=== PATIENT | female | born 1950 | race Caucasian/White ===

== ENCOUNTER 2017-07-17 18:55 | Inpatient (IN) | payer OTHER ==
[~2017-07-17] VITALS: Ht 165.1 cm; Wt 104.7 kg
[~2017-07-17 18:55] MED LIST: ACTONEL35 MG PO; AGGRENOX1 CAPSULE PO; AMLODIPINE BESY10 MG PO; ASCORBIC ACID500 M3 PO; ASPIR-LOW81 MG PO; ATENOLOL25 MG PO; BACTRIM,SEPT1 TABLET PO; BASAGLAR K100 UNIT/1 SC; BUSPAR10 MG PO; CATAPRES0.1 MG PO; COZAAR50 MG PO; CRESTOR20 MG PO; CYANOCOBALAM1000 MCG PO; EDECRIN25 MG PO; EXFORGE 5/321 TABLET PO; FEOSOL325 MG PO; HUMALOG100 UNIT/1 SC; HUMALOG100 UNITS/ SC; Hydrodiuril,Oretic,E PO; LANTUS 3 M100 UNITS/ SC; LANTUS 3 M100 UNITS1 SC; LEVAQUIN500 MG PO; LEVEMIR FL100 UNITS/ SC; LEXAPRO20 MG PO; LOSARTAN POTAS100 MG PO; LYRICA50 MG PO; MIRALAX17 GM PO; MYRBETRIQ50 MG PO; NASONEX17 GM BOTH NARES; NEURONTIN300 MG PO; PREVACID30 MG PO; Prevacid PO; Reglan PO; SENNA-TIME S T1 EACH PO; ULTRAM50 MG PO; VESICARE5 MG PO; VITAMIN D31000 UNIT PO; Vasotec PO; Vicodin,Lortab 5/500 PO; Vitamin B-12 PO; ZYRTEC10 M3 PO; ZyrTEC PO
[2017-07-17 19:26] LABS: POINT-OF-CARE METER ID UU13113778
[2017-07-17 20:17] LABS: EOSINOPHIL (%) 0.8 % (0-5); EOSINOPHIL COUNT 0.1 K/uL (0-0.3); HEMATOCRIT 31.8 % (36.0-46.0); IMMATURE GRANULOCYTE (%) 0.2 % (0.0-0.7); INSTRUMENT ABS NEUTROPHIL CT 6.1 K/uL; LYMPHOCYTE COUNT 1.4 K/uL (1.0-2.8); MCH 31.4 PG (29.0-34.0); MCV 95.2 FL (83-99); MEAN PLAT.VOLUME 11.2 uM^3 (9.5-12.4); MONOCYTE (%) 12.5 % (3-12); MONOCYTE COUNT 1.1 K/uL (0-0.8); NEUTROPHIL (%) 69.9 % (45-76); NEUTROPHIL COUNT 6.1 K/uL (1.8-6.4); PLATELET COUNT 168 K/uL (156-360); RBC DIS.WIDTH-CV 12.6 % (11.8-14.6); RBC DIS.WIDTH-SD 43.9 % (39-53); RED BLOOD COUNT 3.34 M/uL (3.80-5.20); WHITE BLOOD COUNT 8.7 K/uL (4.1-10.2)
[2017-07-17 20:18] LABS: CARBON DIOXIDE (BICARBONATE) 29.7 MEQ/L (20-31)
[2017-07-17 20:26] LABS: CHLORIDE 108 mEq/L (99-109); POTASSIUM 4.2 mEq/L (3.7-5.4); SODIUM 140 mEq/L (136-147)
[2017-07-17 20:28] LABS: GLUCOSE 149 mg/dL (70-99)
[2017-07-17 20:29] LABS: ANION GAP 10 MEQ/L (2-14)
[2017-07-17 20:30] LABS: TOTAL BILIRUBIN 0.4 mg/dL (0.0-1.0)
[2017-07-17 20:31] LABS: ALKALINE PHOSPHATASE 88 IU/L (3-129)
[2017-07-17 20:32] LABS: GFR ESTIMATE (CALCULATED) 37 mL/min/
[2017-07-17 20:33] LABS: UREA NITROGEN (BUN) 32 mg/dL (9-23)
[2017-07-17 21:05] LABS: ADD MIUA? YES; BILIRUBIN NEGATIVE; BLOOD SMALL; COLOR YELLOW ((YELLOW)); GLUCOSE (STRIP) NEGATIVE; KETONES NEGATIVE; LEUKOCYTES LARGE; NITRITE NEGATIVE; PROTEIN (STRIP) 30; SPECIFIC GRAVITY 1.014 (1.000-1.030); UROBILINOGEN 0.2 MG/DL (0.2-1.0)
[2017-07-17 21:43] LABS: BACTERIA 4+ /HPF; EPITHELIAL CELLS 1+ /HPF; MUCUS NONE SEEN /LPF
[2017-07-17 21:44] LABS: AMORPHOUS URATES CRYSTALS 2+; CASTS NONE SEEN /LPF; CRYSTALS PRESENT
[2017-07-17] MEDS ORDERED: HUMALOG100 UNIT/1 SC (22:52)
[2017-07-17] MEDS ORDERED: FIBERCON625 MG PO (22:54)
[2017-07-17] MEDS ORDERED: PERCOCET 5/31 TABLET PO (22:54)
[2017-07-17] MEDS ORDERED: LYRICA50 MG PO (22:54)
[2017-07-17] MEDS ORDERED: METOPROLOL SUCC50 MG PO (22:54)
[2017-07-18] VITALS (7 sets, daily range): BP systolic 129–188; BP diastolic 60–82
[2017-07-18] LABS: POINT-OF-CARE METER ID UU13113747
[2017-07-18 06:32] LABS: HEMATOCRIT 28.1 % (36.0-46.0); MCV 96.9 FL (83-99); MEAN PLAT.VOLUME 11.3 uM^3 (9.5-12.4); PLATELET COUNT 159 K/uL (156-360); RBC DIS.WIDTH-CV 12.7 % (11.8-14.6); RBC DIS.WIDTH-SD 45.2 % (39-53); WHITE BLOOD COUNT 7.6 K/uL (4.1-10.2)
[2017-07-18 06:59] LABS: ALKALINE PHOSPHATASE 73 IU/L (3-129); ANION GAP 10 MEQ/L (2-14); CHLORIDE 108 MEQ/L (99-109); GFR ESTIMATE (CALCULATED) 37 mL/min/; GLUCOSE 216 mg/dL (70-99); HDL CHOLESTEROL 46 MG/DL (Desirable>=50); LDL CHOLESTEROL 41 mg/dL (Desirable<100); NON-HDL CHOLESTEROL 60 mg/dL (Desirable<160); SAMPLE HEMOLYSIS CHECK 0; SAMPLE ICTERIC CHECK 0; SAMPLE LIPEMIA CHECK 0; SODIUM 143 MEQ/L (136-147); TOTAL BILIRUBIN 0.4 MG/DL (0.0-1.0); TOTAL CHOLESTEROL 106 mg/dL (Desirable<200); TRIGLYCERIDES 97 MG/DL (Normal: <150); UREA NITROGEN (BUN) 27 mg/dL (9-23)
[2017-07-18 12:28] LABS: POINT-OF-CARE METER ID UU14188577
[2017-07-18 17:04] LABS: POINT-OF-CARE METER ID UU14188577
[2017-07-18 22:04] LABS: POINT-OF-CARE METER ID UU14117124
[2017-07-19 02:59] VITALS: BP 147/70
[2017-07-19 06:56] LABS: EOSINOPHIL (%) 3.9 % (0-5); EOSINOPHIL COUNT 0.3 K/uL (0-0.3); HEMATOCRIT 28.9 % (36.0-46.0); IMMATURE GRANULOCYTE (%) 0.3 % (0.0-0.7); INSTRUMENT ABS NEUTROPHIL CT 4.2 K/uL; LYMPHOCYTE COUNT 1.2 K/uL (1.0-2.8); MCH 31.2 PG (29.0-34.0); MCHC 31.8 G/DL (30.0-36.0); MEAN PLAT.VOLUME 11.7 uM^3 (9.5-12.4); MONOCYTE (%) 14.4 % (3-12); NEUTROPHIL (%) 63.5 % (45-76); NEUTROPHIL COUNT 4.2 K/uL (1.8-6.4); PLATELET COUNT 170 K/uL (156-360); RBC DIS.WIDTH-CV 12.6 % (11.8-14.6); RBC DIS.WIDTH-SD 45.1 % (39-53); RED BLOOD COUNT 2.95 M/uL (3.80-5.20); WHITE BLOOD COUNT 6.7 K/uL (4.1-10.2)
[2017-07-19 07:22] LABS: ANION GAP 8 MEQ/L (2-14); CHLORIDE 108 MEQ/L (99-109); GFR ESTIMATE (CALCULATED) 30 mL/min/; GLUCOSE 244 mg/dL (70-99); POTASSIUM 4.7 MEQ/L (3.7-5.4); SAMPLE HEMOLYSIS CHECK 0; SAMPLE ICTERIC CHECK 0; SAMPLE LIPEMIA CHECK 0; SODIUM 142 MEQ/L (136-147); UREA NITROGEN (BUN) 31 mg/dL (9-23)
[2017-07-19 08:51] VITALS: BP 124/61
[2017-07-19 12:11] VITALS: BP 181/81
[2017-07-19 15:46] VITALS: BP 187/82
[2017-07-19 19:34] VITALS: BP 185/77
[2017-07-19 21:19] LABS: POINT-OF-CARE METER ID UU14117124
[2017-07-19 23:28] VITALS: BP 188/79
[2017-07-20 03:51] VITALS: BP 185/78
[2017-07-20 06:54] LABS: EOSINOPHIL (%) 2.2 % (0-5); EOSINOPHIL COUNT 0.2 K/uL (0-0.3); HEMATOCRIT 29.7 % (36.0-46.0); IMMATURE GRANULOCYTE (%) 0.2 % (0.0-0.7); LYMPHOCYTE COUNT 1.1 K/uL (1.0-2.8); MCH 30.9 PG (29.0-34.0); MCV 96.7 FL (83-99); MEAN PLAT.VOLUME 11.5 uM^3 (9.5-12.4); MONOCYTE (%) 9.2 % (3-12); MONOCYTE COUNT 0.7 K/uL (0-0.8); NEUTROPHIL (%) 74.1 % (45-76); PLATELET COUNT 183 K/uL (156-360); RBC DIS.WIDTH-CV 12.5 % (11.8-14.6); RBC DIS.WIDTH-SD 44.3 % (39-53); RED BLOOD COUNT 3.07 M/uL (3.80-5.20); WHITE BLOOD COUNT 8.1 K/uL (4.1-10.2)
[2017-07-20 07:33] VITALS: BP 156/74
[2017-07-20 07:35] LABS: ANION GAP 11 MEQ/L (2-14); CHLORIDE 105 MEQ/L (99-109); GFR ESTIMATE (CALCULATED) 53 mL/min/; POTASSIUM 4.5 MEQ/L (3.7-5.4); SODIUM 139 MEQ/L (136-147); UREA NITROGEN (BUN) 24 mg/dL (9-23)
[2017-07-20 07:36] LABS: GLUCOSE 385 mg/dL (70-99)
[2017-07-20 12:03] VITALS: BP 158/70
[2017-07-20 20:27] VITALS: BP 132/70
[2017-07-21] VITALS (8 sets, daily range): BP systolic 141–186; BP diastolic 70–111
[2017-07-21 06:36] LABS: POINT-OF-CARE METER ID UU14208753
[2017-07-21 11:28] LABS: POINT-OF-CARE METER ID UU14117124
[2017-07-21 16:49] LABS: POINT-OF-CARE METER ID UU14117124
[2017-07-21 22:13] LABS: POINT-OF-CARE METER ID UU14117124
[2017-07-22 03:56] VITALS: BP 162/72
[2017-07-22 06:58] LABS: POINT-OF-CARE METER ID UU14188577
[2017-07-22 07:33] VITALS: BP 184/74
[2017-07-22 11:54] VITALS: BP 164/73
[2017-07-22 12:14] LABS: POINT-OF-CARE METER ID UU14188577
[2017-07-22 15:28] VITALS: BP 184/77
[2017-07-22 16:42] LABS: POINT-OF-CARE METER ID UU14117124
[2017-07-22 19:16] VITALS: BP 134/86
[2017-07-22 21:03] LABS: POINT-OF-CARE METER ID UU14188577
[2017-07-22 23:41] VITALS: BP 144/80
[2017-07-23 02:24] LABS: POINT-OF-CARE METER ID UU14208753
[2017-07-23 04:39] VITALS: BP 183/81
[2017-07-23 06:42] LABS: POINT-OF-CARE METER ID UU14188577
[2017-07-23 07:25] VITALS: BP 122/67
[2017-07-23 08:35] VITALS: BP 122/67
[2017-07-23] MEDS ORDERED: GLUCAGEN1 MG/1 ML IM/SC (09:04)
[2017-07-23] MEDS ORDERED: ENDOCET 5-3251 EACH PO (09:04)
[2017-07-23] MEDS ORDERED: CLONIDINE HCL0.1 MG PO (09:04)
[2017-07-23] MEDS ORDERED: AMLODIPINE BESYL5 MG PO (09:04)
[2017-07-23] MEDS ORDERED: OXYCODONE-APAP1 EACH PO (09:04)
[2017-07-23 11:19] VITALS: BP 196/76
[2017-07-23 11:37] LABS: POINT-OF-CARE METER ID UU14188577
[2017-07-23 12:47] VITALS: BP 160/72
== END 2017-07-23 13:18 | DRG 948 ==
LOC: EME 18:55 → MIC 18:55 → 3EAST 22:00 → EDOF 22:00 → ENRESERV 22:21 → 3EAST 07-18 00:03
PROVIDERS: Emergency Medicine; Internal Medicine
DX: R41.0 Disorientation, unspecified (principal); N39.0 Urinary tract infection, site not specified; E11.65 Type 2 diabetes mellitus with hyperglycemia; I12.9 Hypertensive chronic kidney disease with stage 1 through stage 4 chronic kidney disease, or unspecified chronic kidney disease; D63.8 Anemia in other chronic diseases classified elsewhere; E11.22 Type 2 diabetes mellitus with diabetic chronic kidney disease; E11.42 Type 2 diabetes mellitus with diabetic polyneuropathy; Z86.73 Personal history of transient ischemic attack (TIA), and cerebral infarction without residual deficits; M81.0 Age-related osteoporosis without current pathological fracture; K21.9 Gastro-esophageal reflux disease without esophagitis; E78.5 Hyperlipidemia, unspecified; F32.9 Major depressive disorder, single episode, unspecified; F41.9 Anxiety disorder, unspecified; N18.3 Chronic kidney disease, stage 3 (moderate); R13.10 Dysphagia, unspecified; S42.201D Unspecified fracture of upper end of right humerus, subsequent encounter for fracture with routine healing; J44.9 Chronic obstructive pulmonary disease, unspecified; Z88.2 Allergy status to sulfonamides; Z87.891 Personal history of nicotine dependence; Z87.440 Personal history of urinary (tract) infections; Z83.3 Family history of diabetes mellitus; Z79.4 Long term (current) use of insulin; Y92.9 Unspecified place or not applicable; Z68.38 Body mass index [BMI] 38.0-38.9, adult
CPT/HCPCS: 36415; 70450; 70551; 71020; 80048; 80053; 80061; 81003; 82010; 82803; 82948; 83036; 85025; 85027; 87077; 87086; 87186; 90686; 92610 GN; 93005; 94799; 97530 GO; 97530 GP; 99281; 99285; J0360; J0696; J1170; J1644; J1815; J7030; J7050

== ENCOUNTER 2018-04-15 10:28 | Day surgery (SDC) | payer OTHER ==
[~2018-04-15] VITALS: Ht 165.1 cm; Wt 103.5 kg
[~2018-04-15 10:28] MED LIST changes: +AMLODIPINE BESYL5 MG PO; +ASPIR 8181 M1 PO; +CLONIDINE HCL0.1 MG PO; +DIOVAN160 MG PO; +ENDOCET 5-3251 EACH PO; +FIBERCON625 MG PO; +GLUCAGEN1 MG/1 ML IM/SC; +LIPITOR20 MG PO; +METOPROLOL SUCC50 MG PO; +NORVASC5 MG PO; +OXYCODONE-APAP1 EACH PO; +PERCOCET 5/31 TABLET PO; +ROCEPHIN 2 GM VI2 GM IM; +SYNTHROID50 MCG PO; +TOPROL XL50 MG PO; +ZYRTEC10 M2 PO
[2018-04-15 11:28] VITALS: BP 182/79
[2018-04-15 15:40] VITALS: BP 179/84
[2018-04-15 16:30] VITALS: BP 160/80
== END 2018-04-15 16:40 | disposition home or self-care (01) ==
LOC: SDC 10:28
PROVIDERS: Orthopaedic Surgery Sports Medicine
PROC: 0PSL04Z Reposition Left Ulna with Internal Fixation Device, Open Approach (ICD-10-PCS; principal; 2018-04-15)
DX: S52.022A Displaced fracture of olecranon process without intraarticular extension of left ulna, initial encounter for closed fracture (principal); I10 Essential (primary) hypertension; J44.9 Chronic obstructive pulmonary disease, unspecified; D64.9 Anemia, unspecified; E78.5 Hyperlipidemia, unspecified; E11.40 Type 2 diabetes mellitus with diabetic neuropathy, unspecified; N28.9 Disorder of kidney and ureter, unspecified; Z96.619 Presence of unspecified artificial shoulder joint; E66.9 Obesity, unspecified; Z82.49 Family history of ischemic heart disease and other diseases of the circulatory system; Z83.3 Family history of diabetes mellitus; Z79.82 Long term (current) use of aspirin; Z79.4 Long term (current) use of insulin; Z80.6 Family history of leukemia; Z82.5 Family history of asthma and other chronic lower respiratory diseases; Z88.2 Allergy status to sulfonamides; Z88.8 Allergy status to other drugs, medicaments and biological substances; W01.0XXA Fall on same level from slipping, tripping and stumbling without subsequent striking against object, initial encounter; Y92.009 Unspecified place in unspecified non-institutional (private) residence as the place of occurrence of the external cause
CPT/HCPCS: 73070; 76000; 82948; 87641; 93005; C1713; J0330; J0690; J1100; J1815; J2250; J2405; J2795; J3010; Q0175; S0020

== ENCOUNTER 2018-04-18 18:10 | Inpatient (IN) | payer OTHER ==
[~2018-04-18] VITALS: Ht 167.6 cm; Wt 108.3 kg
[2018-04-18 18:45] LABS: HEMATOCRIT 29.8 % (36.0-46.0); HEMOGLOBIN 10.1 G/DL (11.9-15.5); MCHC 33.9 G/DL (30.0-36.0); MCV 91.4 FL (83-99); PLATELET COUNT 325 K/uL (156-360); RBC DIS.WIDTH-CV 12.3 % (11.8-14.6); RBC DIS.WIDTH-SD 41.4 % (39-53); RED BLOOD COUNT 3.26 M/uL (3.80-5.20); WHITE BLOOD COUNT 8.1 K/uL (4.1-10.2)
[2018-04-18 19:15] LABS: CHLORIDE 104 mEq/L (99-109); SODIUM 138 mEq/L (136-147)
[2018-04-18 19:17] LABS: GLUCOSE 130 mg/dL (70-99)
[2018-04-18 19:20] LABS: GFR ESTIMATE (CALCULATED) 24 mL/min/
[2018-04-18 19:28] LABS: CREATININE 2.2 mg/dL (0.6-1.3); UREA NITROGEN (BUN) 55 mg/dL (9-23)
[2018-04-18 21:10] LABS: ALBUMIN 4.6 g/dL (3.2-4.8)
[2018-04-18 21:13] LABS: TOTAL PROTEIN 7.2 g/dL (6.4-8.3)
[2018-04-18 21:15] LABS: TOTAL BILIRUBIN 0.7 mg/dL (0.0-1.0)
[2018-04-18 21:16] LABS: ALKALINE PHOSPHATASE 63 IU/L (3-129)
[2018-04-18 21:18] LABS: AST (GOT) 12 IU/L (2-34); DIRECT BILIRUBIN 0.3 mg/dL (0.0-0.3)
[2018-04-18 21:19] LABS: ALT (GPT) 15 IU/L (3-49)
[2018-04-18 21:25] LABS: TROP-I INTERPRETATION NEGATIVE; TROPONIN-I < 0.01 ng/mL (0.0-0.30)
[2018-04-18 22:35] LABS: APPEARANCE CLEAR ((CLEAR)); BILIRUBIN NEGATIVE; BLOOD SMALL; COLOR YELLOW ((YELLOW)); GLUCOSE (STRIP) 150; KETONES NEGATIVE; LEUKOCYTES NEGATIVE; NITRITE NEGATIVE; PROTEIN (STRIP) NEGATIVE; UROBILINOGEN 0.2 MG/DL (0.2-1.0)
[2018-04-18] MEDS ORDERED: ENDOCET 5-3251 EACH PO (22:37)
[2018-04-18] MEDS ORDERED: CEPHALEXIN500 MG PO (22:38)
[2018-04-18] MEDS ORDERED: LEVOTHYROXINE75 MCG PO (22:38)
[2018-04-18] MEDS ORDERED: ATORVASTATIN CA20 MG PO (22:39)
[2018-04-18 22:41] LABS: BACTERIA NONE SEEN /HPF; EPITHELIAL CELLS RARE /HPF; MUCUS TRACE /LPF; RED BLOOD CELLS 0-5 /HPF (0-5); UCUL ADDED? NO; WHITE BLOOD CELLS 0-5 /HPF (0-5)
[2018-04-18 23:00] LABS: MAGNESIUM 2.5 mg/dL (1.3-2.7)
[2018-04-19] VITALS (7 sets, daily range): BP systolic 130–193; BP diastolic 70–90
[2018-04-19 06:18] LABS: HEMATOCRIT 31.2 % (36.0-46.0); HEMOGLOBIN 10.2 G/DL (11.9-15.5); MCH 30.2 PG (29.0-34.0); MCHC 32.7 G/DL (30.0-36.0); MCV 92.3 FL (83-99); PLATELET COUNT 341 K/uL (156-360); RBC DIS.WIDTH-CV 12.3 % (11.8-14.6); RBC DIS.WIDTH-SD 41.8 % (39-53); RED BLOOD COUNT 3.38 M/uL (3.80-5.20); WHITE BLOOD COUNT 5.8 K/uL (4.1-10.2)
[2018-04-19 06:44] LABS: ALBUMIN 3.2 G/DL (3.2-4.8); CHLORIDE 108 MEQ/L (99-109); PHOSPHORUS 3.8 mg/dL (2.5-4.9); SODIUM 143 MEQ/L (136-147); UREA NITROGEN (BUN) 39 mg/dL (9-23)
[2018-04-19 06:49] LABS: CREATININE 1.5 MG/DL (0.6-1.3); GFR ESTIMATE (CALCULATED) 37 mL/min/; GLUCOSE 44 mg/dL (70-99)
[2018-04-19 07:56] LABS: THYROTROPIN (TSH) 0.32 MIU/L (0.4-5.5)
[2018-04-20 02:41] VITALS: BP 150/70
[2018-04-20 03:49] VITALS: BP 152/80
[2018-04-20 05:54] LABS: BASOPHIL (%) 0.3 % (0-1); EOSINOPHIL (%) 6.1 % (0-5); EOSINOPHIL COUNT 0.4 K/uL (0-0.3); HEMATOCRIT 30.8 % (36.0-46.0); HEMOGLOBIN 10.3 G/DL (11.9-15.5); IMMATURE GRANULOCYTE (%) 0.3 % (0.0-0.7); LYMPHOCYTE COUNT 1.6 K/uL (1.0-2.8); MCH 30.7 PG (29.0-34.0); MCHC 33.4 G/DL (30.0-36.0); MCV 91.7 FL (83-99); MONOCYTE (%) 15.6 % (3-12); MONOCYTE COUNT 0.9 K/uL (0-0.8); NEUTROPHIL (%) 50.7 % (45-76); PLATELET COUNT 328 K/uL (156-360); RBC DIS.WIDTH-CV 12.2 % (11.8-14.6); RED BLOOD COUNT 3.36 M/uL (3.80-5.20); WHITE BLOOD COUNT 5.9 K/uL (4.1-10.2)
[2018-04-20 06:19] LABS: ALBUMIN 3.1 G/DL (3.2-4.8); CHLORIDE 104 MEQ/L (99-109); GFR ESTIMATE (CALCULATED) 59 mL/min/; MAGNESIUM 2.1 mg/dl (1.3-2.7); POTASSIUM 4.4 MEQ/L (3.7-5.4); SODIUM 138 MEQ/L (136-147); UREA NITROGEN (BUN) 23 mg/dL (9-23)
[2018-04-20 06:21] LABS: GLUCOSE 253 mg/dL (70-99)
[2018-04-20 07:20] VITALS: BP 198/78
[2018-04-20 13:59] VITALS: BP 166/88
[2018-04-20 20:10] VITALS: BP 148/62
[2018-04-21] VITALS (7 sets, daily range): BP systolic 122–165; BP diastolic 58–80
[2018-04-21 07:28] LABS: HDL CHOLESTEROL 26 MG/DL (Desirable>=50); LDL CHOLESTEROL 69 mg/dL (Desirable<100); NON-HDL CHOLESTEROL 101 mg/dL (Desirable<160); TOTAL CHOLESTEROL 127 mg/dL (Desirable<200); TRIGLYCERIDES 162 MG/DL (Normal: <150)
[2018-04-21 10:54] LABS: HEMOGLOBIN A1c (GLYCOHEMOGLOB) 9.2 % (Below 5.7)
[2018-04-22 04:04] VITALS: BP 185/87
[2018-04-22 08:16] VITALS: BP 167/74
[2018-04-22 12:16] VITALS: BP 165/71
[2018-04-22 16:13] VITALS: BP 156/67
[2018-04-22 20:14] VITALS: BP 138/63
[2018-04-22 23:56] VITALS: BP 170/73
[2018-04-23 03:57] VITALS: BP 161/71
[2018-04-23 07:41] VITALS: BP 166/74
[2018-04-23 12:04] VITALS: BP 168/68
[2018-04-23 15:17] VITALS: BP 160/68
[2018-04-23 20:03] VITALS: BP 155/67
[2018-04-24 01:01] VITALS: BP 140/65
[2018-04-24 03:54] VITALS: BP 179/78
[2018-04-24 06:19] LABS: BASOPHIL (%) 0.4 % (0-1); EOSINOPHIL (%) 6.5 % (0-5); EOSINOPHIL COUNT 0.5 K/uL (0-0.3); HEMATOCRIT 30.9 % (36.0-46.0); IMMATURE GRANULOCYTE (%) 0.1 % (0.0-0.7); LYMPHOCYTE (%) 35.8 % (15-42); LYMPHOCYTE COUNT 2.5 K/uL (1.0-2.8); MCH 29.5 PG (29.0-34.0); MCHC 32.4 G/DL (30.0-36.0); MCV 91.2 FL (83-99); MONOCYTE COUNT 0.6 K/uL (0-0.8); NEUTROPHIL (%) 48.2 % (45-76); NEUTROPHIL COUNT 3.4 K/uL (1.8-6.4); PLATELET COUNT 378 K/uL (156-360); RBC DIS.WIDTH-CV 12.1 % (11.8-14.6); RBC DIS.WIDTH-SD 40.6 % (39-53); RED BLOOD COUNT 3.39 M/uL (3.80-5.20); WHITE BLOOD COUNT 7.1 K/uL (4.1-10.2)
[2018-04-24 06:45] LABS: ALBUMIN 3.2 G/DL (3.2-4.8); CHLORIDE 101 MEQ/L (99-109); CREATININE 0.9 MG/DL (0.6-1.3); GFR ESTIMATE (CALCULATED) > 59 mL/min/; GLUCOSE 245 mg/dL (70-99); PHOSPHORUS 3.3 mg/dL (2.5-4.9); POTASSIUM 4.1 MEQ/L (3.7-5.4); SODIUM 132 MEQ/L (136-147); UREA NITROGEN (BUN) 16 mg/dL (9-23)
[2018-04-24 07:07] LABS: IRON 48 MCG/DL (35-150); TRANSFERRIN (TIBC) 165.4 mg/dL (215-380); TRANSFERRIN SATUR. 29 % (20-55)
[2018-04-24 07:46] VITALS: BP 168/72
[2018-04-24 14:58] VITALS: BP 159/73
[2018-04-25 00:24] VITALS: BP 151/66
[2018-04-25 06:27] LABS: BASOPHIL (%) 0.6 % (0-1); EOSINOPHIL (%) 6.7 % (0-5); EOSINOPHIL COUNT 0.5 K/uL (0-0.3); HEMATOCRIT 31.1 % (36.0-46.0); HEMOGLOBIN 10.3 G/DL (11.9-15.5); IMMATURE GRANULOCYTE (%) 0.6 % (0.0-0.7); MCH 29.8 PG (29.0-34.0); MCHC 33.1 G/DL (30.0-36.0); MCV 89.9 FL (83-99); MONOCYTE (%) 9.7 % (3-12); MONOCYTE COUNT 0.7 K/uL (0-0.8); NEUTROPHIL (%) 55.4 % (45-76); PLATELET COUNT 354 K/uL (156-360); RBC DIS.WIDTH-CV 12.1 % (11.8-14.6); RBC DIS.WIDTH-SD 39.5 % (39-53); RED BLOOD COUNT 3.46 M/uL (3.80-5.20); WHITE BLOOD COUNT 7.2 K/uL (4.1-10.2)
[2018-04-25 06:51] LABS: ALBUMIN 3.2 G/DL (3.2-4.8); CHLORIDE 100 MEQ/L (99-109); CREATININE 1.1 MG/DL (0.6-1.3); GFR ESTIMATE (CALCULATED) 52 mL/min/; GLUCOSE 274 mg/dL (70-99); PHOSPHORUS 3.6 mg/dL (2.5-4.9); POTASSIUM 4.2 MEQ/L (3.7-5.4); SODIUM 134 MEQ/L (136-147); UREA NITROGEN (BUN) 19 mg/dL (9-23)
[2018-04-25 07:45] VITALS: BP 175/67
[2018-04-25] MEDS ORDERED: HEPARIN SO5000 UNIT4 SC (14:49)
[2018-04-25] MEDS ORDERED: APRESOLINE50 MG PO (14:49)
[2018-04-25] MEDS ORDERED: BYSTOLIC10 MG PO (14:49)
[2018-04-25] MEDS ORDERED: TRAMADOL HCL50 MG PO (14:49)
[2018-04-25] MEDS ORDERED: Chronulac,Cephulac,E PO (14:49)
[2018-04-25] MEDS ORDERED: DOCUSATE SODIU100 MG PO (14:49)
[2018-04-25] MEDS ORDERED: TYLENOL REGULA325 MG PO (14:49)
[2018-04-25] MEDS ORDERED: AMLODIPINE BESY10 MG PO (14:49)
[2018-04-25 15:00] VITALS: BP 162/72
== END 2018-04-25 18:56 | DRG 64 ==
LOC: EME 18:10 → 5EAST 04-19 00:19 → EDOF 04-19 00:19 → 5SOUTH 04-19 00:19 → ENRESERV 04-19 00:21 → 5EAST 04-19 02:01 → ENRESERV 04-20 11:08 → 5SOUTH 04-20 13:47
PROVIDERS: Internal Medicine; Internal Medicine Nephrology; Psychiatry & Neurology Clinical Neurophysiology
DX: I63.9 Cerebral infarction, unspecified (principal); G93.41 Metabolic encephalopathy; N17.9 Acute kidney failure, unspecified; S52.022D Displaced fracture of olecranon process without intraarticular extension of left ulna, subsequent encounter for closed fracture with routine healing; I12.9 Hypertensive chronic kidney disease with stage 1 through stage 4 chronic kidney disease, or unspecified chronic kidney disease; N18.3 Chronic kidney disease, stage 3 (moderate); N39.0 Urinary tract infection, site not specified; E11.22 Type 2 diabetes mellitus with diabetic chronic kidney disease; E86.0 Dehydration; F01.50 Vascular dementia, unspecified severity, without behavioral disturbance, psychotic disturbance, mood disturbance, and anxiety; I69.398 Other sequelae of cerebral infarction; H54.7 Unspecified visual loss; E11.42 Type 2 diabetes mellitus with diabetic polyneuropathy; E11.65 Type 2 diabetes mellitus with hyperglycemia; R33.9 Retention of urine, unspecified; D63.8 Anemia in other chronic diseases classified elsewhere; E55.9 Vitamin D deficiency, unspecified; J44.9 Chronic obstructive pulmonary disease, unspecified; K59.00 Constipation, unspecified; M81.0 Age-related osteoporosis without current pathological fracture; R29.6 Repeated falls; R26.9 Unspecified abnormalities of gait and mobility; E03.9 Hypothyroidism, unspecified; K21.9 Gastro-esophageal reflux disease without esophagitis; E78.00 Pure hypercholesterolemia, unspecified; E78.5 Hyperlipidemia, unspecified; F32.9 Major depressive disorder, single episode, unspecified; F41.9 Anxiety disorder, unspecified; E66.9 Obesity, unspecified; Z68.39 Body mass index [BMI] 39.0-39.9, adult; Z87.891 Personal history of nicotine dependence; Z96.611 Presence of right artificial shoulder joint
CPT/HCPCS: 70450; 70551; 71045; 71046; 74230; 76770; 80048; 80061; 80069; 80076; 81003; 82040; 82948; 83036; 83540; 83605; 83735; 84439; 84443; 84466; 84484; 85025; 85027; 87040; 92610 GN; 92611 GN; 93005; 93880; 93971; 94799; 97530 GP; 99281; 99285; J1644; J1815; J7030